=== PATIENT | male | born 1980 | race Caucasian/White ===

== ENCOUNTER → 2018-06-06 | Outpatient (CLI) | payer BC ==
--- NOTE | 2018-06-06 15:04 | PCVCIMAG ---
APPROVED REPORT Study performed: 06/06/2018 13:03:13 EXAM: Comprehensive 2D, Doppler, and color-flow Echocardiogram Patient Location: Echo lab Status: routine BSA: 2.08 HR: 73 bpmBP: 112/80 mmHg Rhythm: NSR Other Information Study Quality: Good Risk Factors: Cardiac Risk Factors: HTN, Strong family history of premature CAD Indications Hypertension/HDD 2D Dimensions IVSd: 13.78 (7-11mm)LVOT Diam: 21.03 (18-24mm) LVDd: 40.09 mm PWd: 11.65 (7-11mm)Ascending Ao: 30.46 (22-36mm) LVDs: 28.50 (25-40mm) Left Atrium: 32.95 (27-40mm) Aortic Root: 26.65 mm LV Single Plane 4CH: 66.79 % LV Single Plane 2CH: 64.41 % Biplane EF: 65.0 % Volumes Left Atrial Volume (Systole) Single Plane 4CH: 43.84 mLSingle Plane 2CH: 50.79 mL LA ESV Index: 24.00 mL/m2 Aortic Valve AoV Peak Holland.: 1.43 m/s AO Peak Gr.: 8.20 mmHgLVOT Max P.98 mmHg LVOT Max V: 1.12 m/s SANTO Vmax: 2.71 cm2 Mitral Valve E/A Ratio: 2.2 MV Decel. Time: 238.28 ms MV E Max Holland.: 0.96 m/s MV A Holland.: 0.44 m/s IVRT: 100.35 ms TDI E/Lateral E': 6.86E/Medial E': 8.00 Medial E' Holland.: 0.12 m/s Lateral E' Holland.: 0.14 m/s Pulmonary Valve PV Peak Gr.: 4.31 mmHg Pulmonary Vein P Vein S: 0.72 m/sP Vein A: 0.37 m/s P Vein D: 0.69 m/sP Vein A Dur.: 83.0 msec P Vein S/D Ratio: 1.04 Left Ventricle The left ventricle is normal size. There is normal LV segmental wall motion. There is normal left ventricular wall thickness. Left ventricular systolic function is normal. The left ventricular ejection fraction is within the normal range. LVEF is 60-65%. The left ventricular diastolic function is normal. Right Ventricle The right ventricle is normal size. The right ventricular systolic function is normal. Atria The left atrium size is normal. The right atrium size is normal. Aortic Valve The aortic valve is normal in structure. No aortic regurgitation is present. There is no aortic valvular stenosis. Mitral Valve The mitral valve is normal in structure. There is no mitral valve regurgitation noted. No evidence of mitral valve stenosis. Tricuspid Valve The tricuspid valve is normal in structure. There is no tricuspid valve regurgitation noted. Pulmonic Valve The pulmonary valve is normal in structure. There is no pulmonic valvular regurgitation. Great Vessels The aortic root is normal in size. IVC is normal in size and collapses >50% with inspiration. Pericardium There is no pericardial effusion. <Conclusion> 1. Normal echocardiogram with Doppler. EF 65% 2. No pericardial effusion
--- NOTE | 2018-06-06 15:06 | PCVCIMAG ---
APPROVED REPORT Patient Location: Echo lab, [facility] Room #: Stress Nurse: Kim Johnston RN Indications: Hypertension, Strong family history of CAD. The patient exercised according to Ayaan Protocol for 9:55 mins, achieving a work level of Max. Mets 13.00. The resting heart rate of 62bpm david to a maximal heart rate of 173bpm. This value represents 95% of the maximal age predicted heart rate. The resting blood pressure of 112/80mmHg., david to a maximum blood pressure of 156/80mmHg. The exercise test was stopped due to fatigue. Resting EKG: Sinus rhythm with early repolarization Stress electrocardiogram. No significant dysrhythmias. No diagnostic ischemic electrocardiographic changes. Conclusion 1. Maximal treadmill exercise study negative for exercise-induced ischemia. 2. No subjective signs of ischemia such as chest pain or anginal-like symptoms. 3. The study was associated with good exercise capacity (13.0 METS)
== END | disposition home or self-care (01) ==
LOC: PCVCIMAG 13:27
PROVIDERS: ATTEND Internal Medicine
DX: I10 Essential (primary) hypertension (principal); E78.5 Hyperlipidemia, unspecified; I15.9 Secondary hypertension, unspecified; Z82.49 Family history of ischemic heart disease and other diseases of the circulatory system
CPT/HCPCS: 93017; 93306